=== PATIENT | male | born 1970 | race Caucasian/White ===

== ENCOUNTER 2016-10-07 11:22 | Emergency (ER) | payer SELFPAY ==
[~2016-10-07] VITALS: Ht 172.7 cm; Wt 66.9 kg
[~2016-10-07 11:22] MED LIST: MOTR200T4 PO
[2016-10-07 11:36] VITALS: BP 103/75; PULSE 93; RESP 16; TEMP 98; O2SAT 98
--- NOTE | 2016-10-07 12:32 | PD ---
HPI Chief Complaint: GI Complaint Time Seen by Provider: 12:10 Travel History International Travel<30 days: No Contact w/Intl Traveler<30days: No Traveled to known affect area: No History of Present Illness HPI 46-year-old male has had abdomen pain for about 2 days. He's noticed a reducible left lower abdominal wall hernia which has become worse since he has been performing fair amount of exertional labor. Pain can be severe for brief intervals however is essentially asymptomatic at rest. He is an apprentice electrician. He's had no episode of inability to reduce the hernia. He's had R elbow pain for years which has been improving gradually and is only mildly symptomatic. After some additional questioning his main concern is that the abdominal wall hernia could progress into an emergency in a short period of time as [place] planning [place]. No nausea or vomiting. Appetite normal. PFSH Past Medical History Diabetes: No Diminished Hearing: Yes ([place] EAR) Headaches: Yes (CLUSTER H/A) Musculoskeletal: Yes (TENDENITIS) Immunizations Current: Yes ([id number]) Migraines: Yes Tetanus Vaccination: < 5 Years Influenza Vaccination: Yes Past Surgical History Abdominal Surgery: Yes (HERNIA SX) Oral Surgery: Yes (WISDOM TEETH REMOVED) Tonsillectomy: Yes Other Surgery: Yes (DEVIATED SEPTUM 1987) Social History Alcohol Use: No Tobacco Use: Yes (1 PPD) Substance Use: No Allergies-Medications (Allergen,Severity, Reaction): Coded Allergies: No Known Allergies (Verified , 10/07/16) Reported Meds & Prescriptions Reported Meds & Active Scripts Active No Active Prescriptions or Reported Medications Review of Systems Except as stated in HPI: all other systems reviewed are Neg Physical Exam Narrative GENERAL: 46 yo M, NAD, WNWD SKIN: Warm and dry. HEAD: Atraumatic. Normocephalic. EYES: Pupils equal and round. No scleral icterus. No injection or drainage. ENT: No nasal bleeding or discharge. Mucous membranes pink and moist. NECK: Trachea midline. No JVD. CARDIOVASCULAR: Regular rate and rhythm. RESPIRATORY: No accessory muscle use. Clear to auscultation. Breath sounds equal bilaterally. GASTROINTESTINAL: Easily reducible L lower abdominal wall hernia. Abdomen soft, non-tender, non-distended. MUSCULOSKELETAL: Extremities without clubbing, cyanosis, or edema. No obvious deformities. Minimal TTP R lateral epicondyle of elbow. NEUROLOGICAL: Awake and alert. No obvious cranial nerve deficits. Motor grossly within normal limits. Five out of 5 muscle strength in the arms and legs. Normal speech. PSYCHIATRIC: Appropriate mood and affect; insight and judgment normal. Data Data Last Documented VS Vital Signs Date Time Temp Pulse Resp B/P Pulse Ox O2 Delivery O2 Flow Rate FiO2 10/07/16 11:36 98.0 93 16 103/75 98 VS reviewed MDM Medical Decision Making Medical Screen Exam Complete: Yes Emergency Medical Condition: Yes Differential Diagnosis Incarcerated hernia, reducible hernia, obstruction, tendonitis Narrative Course Pt reassured and educated. Work note provided at his request. Diagnosis Primary Impression: Hernia of anterior abdominal wall Additional Impression: Tendonitis Referrals: DR NICHOLS 2 days Adin Henry MD 2 days Additional Instructions: You have a choice when it comes to health care, and we are glad that you chose [facility]. Hopefully, we have met your expectations on today's visit. You are welcome to return to [facility] at any time, as we are committed to meeting the health care needs of our community. Med/Other Pt SpecificInfo: No Change to Meds Scripts No Active Prescriptions or Reported Meds Disposition: 01 DISCHARGE HOME Condition: Stable Clinton Villar MD October 07, 2016 12:32
== END 2016-10-07 13:08 | disposition home or self-care (01) ==
LOC: PHED 11:22
DX: K43.9 Ventral hernia without obstruction or gangrene (principal); M77.9 Enthesopathy, unspecified; M25.521 Pain in right elbow; F17.200 Nicotine dependence, unspecified, uncomplicated
CPT/HCPCS: 99282

== ENCOUNTER 2016-12-05 11:17 | Emergency (ER) | payer SELFPAY ==
[~2016-12-05] VITALS: Ht 172.7 cm; Wt 70.0 kg
[2016-12-05 11:19] VITALS: BP 136/83; PULSE 112; RESP 18; TEMP 98.3; O2SAT 96
[2016-12-05] MEDS ORDERED: SODIUM CHLOR 0.9% 1000 ML INJ 1,000 ML IV SCH (11:35)
--- NOTE | 2016-12-05 11:39 | PD ---
HPI Chief Complaint: GI Complaint Time Seen by Provider: 11:38 Travel History International Travel<30 days: No Contact w/Intl Traveler<30days: No Traveled to known affect area: No History of Present Illness HPI This is a 38-year-old male presents for evaluation of abdominal pain. Symptoms started 3 days ago. He has been having an aching epigastric abdominal pain which is constant, no aggravating or relieving factors. He endorses associated nausea. He does not this is related to his left inguinal hernia. He has had a hernia in the left inguinal region for the past 3 months. He is typically able to reduce it but over the past few weeks he has noticed that is larger and more difficult to reduce, typically reduces easier when lying down. He was seen here for evaluation of this hernia in September and advised to follow-up with his surgeon which he has not done secondary to insurance concerns. He has had normal bowel movements. No fevers or chills. Denies any testicular or scrotal pain, dysuria, flank pain. He has no other complaints at this time. [facility] Past Medical History Diabetes: No Diminished Hearing: Yes ([place] LT EAR) Headaches: Yes (CLUSTER H/A) Musculoskeletal: Yes (TENDENITIS) Immunizations Current: Yes ([id number]) Migraines: Yes Past Surgical History Abdominal Surgery: Yes (HERNIA SX) Oral Surgery: Yes (WISDOM TEETH REMOVED) Tonsillectomy: Yes Other Surgery: Yes (DEVIATED SEPTUM 1988) Social History Alcohol Use: No Tobacco Use: Yes (1 PPD) Substance Use: No Allergies-Medications (Allergen,Severity, Reaction): Coded Allergies: No Known Allergies (Verified , 12/05/16) Reported Meds & Prescriptions Reported Meds & Active Scripts Active Phenergan (Promethazine HCl) 25 Mg Tablet 25 Mg PO Q6H PRN Tramadol (Tramadol HCl) 50 Mg Tab 50 Mg PO Q6H PRN Review of Systems Except as stated in HPI: all other systems reviewed are Neg Physical Exam Narrative GENERAL: Well-developed well-nourished male in no acute distress. He is mildly tachycardic at triage. SKIN: Warm and dry. HEAD: Atraumatic. Normocephalic. EYES: Pupils equal and round. No scleral icterus. No injection or drainage. ENT: No nasal bleeding or discharge. Mucous membranes pink and moist. NECK: Trachea midline. No JVD. CARDIOVASCULAR: Regular rate and rhythm. No murmur appreciated. RESPIRATORY: No accessory muscle use. Clear to auscultation. Breath sounds equal bilaterally. GASTROINTESTINAL: Abdomen soft, tender to palpation in the epigastrium without guarding. He has a small left inguinal hernia which is easily reducible when the patient is lying supine. Normal appearing scrotum. MUSCULOSKELETAL: No obvious deformities. No edema. NEUROLOGICAL: Awake and alert. No obvious cranial nerve deficits. Motor grossly within normal limits. Normal speech. PSYCHIATRIC: Appropriate mood and affect; insight and judgment normal. Data Data Last Documented VS Vital Signs Date Time Temp Pulse Resp B/P Pulse Ox O2 Delivery O2 Flow Rate FiO2 12/05/16 11:19 98.3 112 18 136/83 96 Orders Complete Blood Count With Diff (12/05/16 11:35) Comprehensive Metabolic Panel (12/05/16 11:35) Lipase (12/05/16 11:35) Iv Access Insert/Monitor (12/05/16 11:35) Ecg Monitoring (12/05/16 11:35) Oximetry (12/05/16 11:35) Ondansetron Inj (Zofran Inj) (12/05/16 11:45) Sodium Chlor 0.9% 1000 Ml Inj (Ns 1000 M (12/05/16 11:35) Sodium Chloride 0.9% Flush (Ns Flush) (12/05/16 11:45) Morphine Inj (Morphine Inj) (12/05/16 11:45) Al-Mag Hy-Si 40-40-4 Mg/Ml Liq (Mag-Al P (12/05/16 11:45) Lidocaine 2% Viscous (Xylocaine 2% Visco (12/05/16 11:45) Ct Abd/Pel W Iv Contrast(Rout) (12/05/16 11:54) Iohexol 350 Inj (Omnipaque 350 Inj) (12/05/16 13:20) Labs Laboratory Tests Test 12/05/16 11:40 White Blood Count 15.1 TH/MM3 Red Blood Count 4.76 MIL/MM3 Hemoglobin 14.9 GM/DL Hematocrit 43.0 % Mean Corpuscular Volume 90.3 FL Mean Corpuscular Hemoglobin 31.3 PG Mean Corpuscular Hemoglobin 34.7 % Concent Red Cell Distribution Width 13.0 % Platelet Count 244 TH/MM3 Mean Platelet Volume 8.4 FL Neutrophils (%) (Auto) 75.9 % Lymphocytes (%) (Auto) 15.5 % Monocytes (%) (Auto) 7.6 % Eosinophils (%) (Auto) 0.5 % Basophils (%) (Auto) 0.5 % Neutrophils # (Auto) 11.5 TH/MM3 Lymphocytes # (Auto) 2.3 TH/MM3 Monocytes # (Auto) 1.2 TH/MM3 Eosinophils # (Auto) 0.1 TH/MM3 Basophils # (Auto) 0.1 TH/MM3 CBC Comment DIFF FINAL Differential Comment Sodium Level 137 MEQ/L Potassium Level 3.8 MEQ/L Chloride Level 106 MEQ/L Carbon Dioxide Level 25.0 MEQ/L Anion Gap 6 MEQ/L Blood Urea Nitrogen 14 MG/DL Creatinine 0.97 MG/DL Estimat Glomerular Filtration 83 ML/MIN Rate Random Glucose 97 MG/DL Calcium Level 8.8 MG/DL Total Bilirubin 0.5 MG/DL Aspartate Amino Transf 17 U/L (AST/SGOT) Alanine Aminotransferase 18 U/L (ALT/SGPT) Alkaline Phosphatase 88 U/L Total Protein 7.1 GM/DL Albumin 3.9 GM/DL Lipase 68 U/L MDM Medical Decision Making Medical Screen Exam Complete: Yes Emergency Medical Condition: Yes Medical Record Reviewed: Yes Differential Diagnosis Pancreatitis, inguinal hernia, incarcerated hernia, strangulated hernia, cholecystitis, gastritis Narrative Course This is a 46-year-old male who has been experiencing constant epigastric pain for the past 3 days with associated nausea. He has also had an easily reducible left inguinal hernia for the past 3 months however he does report that the hernia has been gradually growing larger and more difficult to reduce at home. On Examination the hernia was easily reducible when the patient was lying supine. There is no evidence of strangulation or incarceration. He was mildly tachycardic in triage. Plan is for basic lab work, CT abdomen and pelvis. He will Be given a GI cocktail, IV fluids, Zofran and IV fluids. The patient's laboratory imaging studies been reviewed. CT the abdomen and pelvis reveals no acute abnormality. At this point on the patient is stable for discharge, outpatient follow-up. He is given information regards to how to apply for patient assistance. Discussed signs and symptoms of incarcerated/ strangulated hernia that would warrant returning to the emergency room. He is stable for discharge. Diagnosis Primary Impression: Abdominal pain Qualified Code: R10.13 - Epigastric pain Additional Impression: Inguinal hernia Qualified Code: K40.91 - Unilateral recurrent inguinal hernia without obstruction or gangrene Med/Other Pt SpecificInfo: Prescription(s) given Scripts Promethazine (Phenergan)25 Mg [id number] Mg PO Q6H PRN (NAUSEA OR VOMITING) #15 TAB Ref 0 Prov:Micheal Simmons MD 12/05/16 Tramadol 50 Mg Tab50 Mg PO Q6H PRN (PAIN) #20 TAB Ref 0 Prov:Micheal Simmons MD 12/05/16 Disposition: 01 DISCHARGE HOME Condition: Stable Pete Concepcion Dec 05, 2016 11:39
[2016-12-05] MEDS ORDERED: ALUMINUM/MAGNESIUM/SIMETH 30 ML CUP PO ONE (11:45)
[2016-12-05] MEDS ORDERED: SODIUM CHLORIDE 0.9% FLUSH 10 ML FLUSH IV FLUSH PRN (11:45)
[2016-12-05] MEDS ORDERED: ONDANSETRON HCL 4 MG/2 ML VIAL IVP ONE (11:45)
[2016-12-05] MEDS ORDERED: MORPHINE SULFATE 4 MG/ML INJ IV PUSH ONE (11:45)
[2016-12-05] MEDS ORDERED: LIDOCAINE VISCOUS 2% SOLN 15 ML UDC PO ONE (11:45)
[2016-12-05 12:00] LABS: AUTOMATED NEUTROPHIL # 11.5 TH/MM3 (1.8-7.7); BASOPHIL # 0.1 TH/MM3 (0-0.2); BASOPHIL % 0.5 % (0.0-2.0); EOSINOPHIL # 0.1 TH/MM3 (0-0.4); EOSINOPHIL % 0.5 % (0.0-4.0); HEMO FLAGS DIFF FINAL; LYMPH % 15.5 % (9.0-44.0); LYMPHOCYTE # 2.3 TH/MM3 (1.0-4.8); MEAN CELL VOLUME 90.3 FL (80.0-100.0); MEAN CORPUSCULAR HEMOGLOBIN 31.3 PG (27.0-34.0); MEAN CORPUSCULAR HGB CONC 34.7 % (32.0-36.0); MONO % 7.6 % (0.0-8.0); NEUT % 75.9 % (16.0-70.0); PLATELET COUNT 244 TH/MM3 (150-450); RED BLOOD COUNT 4.76 MIL/MM3 (4.50-5.90); WHITE BLOOD COUNT 15.1 TH/MM3 (4.0-11.0)
[2016-12-05 12:22] LABS: ANION GAP 6 MEQ/L (5-15); AST (GOT) 17 U/L (15-37); BLOOD UREA NITROGEN 14 MG/DL (7-18); CHLORIDE 106 MEQ/L (98-107); GLOMERULAR FILTRATION RATE 83 ML/MIN (>89); POTASSIUM 3.8 MEQ/L (3.5-5.1); SODIUM (NA) 137 MEQ/L (136-145)
[2016-12-05 12:23] LABS: ALKALINE PHOSPHATASE 88 U/L (45-117); ALT (GPT) 18 U/L (12-78); TOTAL BILIRUBIN ADULT 0.5 MG/DL (0.2-1.0)
--- NOTE | 2016-12-05 13:06 | RADRPT ---
EXAM DATE/TIME: 12/05/2016 12:32 [facility] COMPARISON: No previous studies available for comparison. INDICATIONS : Abdomen pain. IV CONTRAST: 100 cc Omnipaque 350 (iohexol) IV ORAL CONTRAST: No oral contrast ingested. RADIATION DOSE: 9.96 CTDIvol (mGy) MEDICAL HISTORY : None SURGICAL HISTORY : Hernia repair ENCOUNTER: Initial ACUITY: 3 days PAIN SCALE: 4/10 LOCATION: Bilateral abdomen TECHNIQUE: Volumetric scanning of the abdomen and pelvis was performed. Using automated exposure control and ad justment of the mA and/or kV according to patient size, radiation dose was kept as low as reasonably achievable to obtain optimal diagnostic quality images. DICOM format image data is available electro nically for review and comparison. FINDINGS: LOWER LUNGS: Minimal fibrotic scarring is noted within the posterior aspect of the right lower lobe. LIVER: There are 2 simple cysts within the liver measuring 1.0 cm in the left lobe and 0.9 cm in the right l obe. There is no dilation of the biliary tree. No calcified gallstones. SPLEEN: Normal size without lesion. PANCREAS: Within normal limits. KIDNEYS: Normal in size and shape. There is no solid mass, stone or hydronephrosis. Scattered subcentimeter r enal cysts are noted bilaterally. ADRENAL GLANDS: Within normal limits. VASCULAR: There is no aortic aneurysm. BOWEL/MESENTERY: Uncomplicated colonic diverticulosis is noted. No acute diverticulitis is noted. ABDOMINAL WALL: Within normal limits. RETROPERITONEUM: There is no lymphadenopathy. BLADDER: No wall thickening or mass. REPRODUCTIVE: The prostate gland is enlarged. INGUINAL: There is no lymphadenopathy or hernia. MUSCULOSKELETAL: Within normal limits for patient age. CONCLUSION: 1. Uncomplicated colonic diverticulosis. 2. Simple cysts within the liver and bilateral kidneys. 3. Enlarged prostate. 4. Minimal fibrotic scarring within the posterior aspect of the right lung base. Placido Beebe MD on December 05, 2016 at 12:59 Board Certified Radiologist. This report was verified electronically.
[2016-12-05] MEDS ORDERED: IOHEXOL 350 MG/ML 10 ML VIAL (for RAD DIAG) IV ONE (13:20)
[2016-12-05] MEDS ORDERED: PROM25TA10 PO (13:32)
[2016-12-05] MEDS ORDERED: TRAM50TA PO (13:32)
== END 2016-12-05 14:11 | disposition home or self-care (01) ==
LOC: NEPC 11:17
DX: R10.13 Epigastric pain (principal); K40.91 Unilateral inguinal hernia, without obstruction or gangrene, recurrent; R00.0 Tachycardia, unspecified; H91.92 Unspecified hearing loss, left ear; M77.9 Enthesopathy, unspecified; F17.200 Nicotine dependence, unspecified, uncomplicated
CPT/HCPCS: 74177; 80053; 83690; 85025; 96361; 96374; 96375; 99285; J2270; J2405; J7030; Q9967